=== PATIENT | female | born 1955 | race Caucasian/White ===

== ENCOUNTER → 2016-12-13 | Outpatient (CLI) | payer OTHER ==
[~2016-12-13] MED LIST: BENTYL10 MG PO; BYSTOLIC10 MG PO; CALCIUM 500 +1 EAC4 PO; DEXILANT60 MG PO; EFFEXOR XR150 MG PO; FLAGYL250 MG PO; KLONOPIN0.5 M1 PO; LEVOTHROID (S137 MCG PO; MAGNESIUM250 M1 PO; MIRAPEX1 MG PO; MOBIC15 MG PO; OSCAL500 MG PO; PREDNISONE10 MG PO; PRINIVIL OR ZES10 MG PO; PROTONIX40 MG PO; PROVENTIL OR V6.7 GM INH; ROCALTROL0.25 MCG PO; TYLENOL/COD#31 TAB PO; ULTRAM50 MG PO
== END | disposition disaster alternative care site (69) ==
LOC: GRAD 10:43
DX: R10.9 Unspecified abdominal pain (principal)
CPT/HCPCS: A9537

== ENCOUNTER → 2017-01-14 | Day surgery (SDC) | payer OTHER ==
[~2017-01-14] VITALS: Ht 162.6 cm; Wt 77.6 kg
--- NOTE | ~2017-01-14 | OR ---
PATIENT'S NAME: TONI BUTCHER [facility] AGE: 61 Y [address] ROOM: [place] [address] LOCATION: GEND ADMIT DATE: 01/14/2017 OR/Procedure Report DISCHARGE DATE: FAMILY PHYSICIAN: Jose Jose MD ATTENDING PHYSICIAN: SHAY HAN (GASTRO) SURGEON: Tho Han MD PRINTER HELPER: DATE OF PROCEDURE: 01/14/2017 PROCEDURE: Esophagogastroduodenoscopy. INDICATIONS: Abdominal pain. MEDICATIONS: Please see anesthesiology record for details. CONSENT: The risks/benefits/alternatives were discussed and the patient or her power of robotics technologist expressed understanding and agreed to proceed. Informed consent was obtained and placed in the chart. Time-out was completed prior to starting the procedure. PROCEDURE: Patient was placed in the left lateral decubitus position. One- lead EKG monitoring was used along with intermittent blood pressure monitoring and pulse oximetry. Bite block was placed in the patient's mouth. The above medications were given and titrated to response. Once adequate sedation was completed, the endoscope was passed through the patient's mouth into the posterior oropharynx. The endoscope was then passed into the esophagus, stomach and duodenal bulb. The duodenum was examined through the third portion. The endoscope was then withdrawn into the stomach. In the stomach, retroflexion was completed. The scope was then straightened and withdrawn from the patient. The patient tolerated the procedure well. There were no complications. SUMMARY OF FINDINGS: 1. Normal esophagus. 2. Normal stomach, status post biopsies to rule out H pylori. 3. Normal duodenum, status post biopsies, rule out celiac disease. ASSESSMENT AND PLAN: Abdominal pain: Nothing seen on EGD to explain patient's abdominal pain. There was no evidence of any ulcers or other lesions. We will await biopsies to rule out celiac disease and H pylori. I recommend following up in clinic to discuss a low FODMAP diet as I suspect changing to this will alleviate her bloating and relieve a lot of her abdominal pain as well. PATIENT'S NAME: TONI BUTCHER [facility] AGE: 61 Y [address] ROOM: [place] [address] LOCATION: GEND ADMIT DATE: 01/14/2017 OR/Procedure Report DISCHARGE DATE: FAMILY PHYSICIAN: Jose Jose MD ATTENDING PHYSICIAN: SHAY HAN (GASTRO) J SAGAR HAN MD JRT/modl /[id number] d: 01/14/17 1337 t: 01/14/17 1428, OPERATIVE SUMMARY
--- NOTE | ~2017-01-14 | OR ---
PATIENT'S NAME: TONI BUTCHER [facility] AGE: 61 Y [address] ROOM: [place] [id number] LOCATION: GEND ADMIT DATE: 01/14/2017 OR/Procedure Report DISCHARGE DATE: FAMILY PHYSICIAN: Jose Jose MD ATTENDING PHYSICIAN: SHAY HAN (GASTRO) SURGEON: Tho Han MD SOAPING MACHINE BACK TENDER: DATE OF PROCEDURE: 01/14/2017 PROCEDURE PERFORMED: Colonoscopy. INDICATIONS: Screening. MEDICATIONS: Please see Anesthesiology record for details. CONSENT: The risks/benefits/alternatives were discussed and the patient or her power of estate attorney expressed understanding and agreed to proceed. Informed consent was obtained and placed on the chart. Time-out was completed prior to starting the procedure. PROCEDURE IN DETAIL: Patient was placed in the left lateral decubitus position. One lead EKG monitoring was used along with intermittent blood pressure monitoring and pulse oximetry. The above medications were given and titrated to response. Once adequate sedation was completed, rectal exam was performed. The colonoscope was then passed through the rectum, into the sigmoid colon. The scope was then passed through the descending, transverse, and ascending colon. The scope was then passed into the cecum. The cecum was identified by the ileocecal valve and appendiceal orifice. The scope was then withdrawn. On withdrawal, the mucosa of the colon was examined. In the rectum, retroflexion was completed. The scope was then withdrawn from the patient. The patient tolerated the procedure well. There were no complications. SUMMARY OF FINDINGS: 1. Sigmoid colon polyp, 2 mm, sessile. This was seen, however, I was unable to remove the polyp as there was stool and debris in the area that could not be suctioned out. This covered the polyp and the polyp was not seen again. 2. Internal hemorrhoids, small, nonbleeding. 3. The terminal ileum was intubated and appeared normal. ASSESSMENT AND PLAN: Screening colonoscopy: The patient did have one polyp on exam today, this polyp was not removed given the stool in the area and the difficulty in finding this lesion second time. Therefore, I do recommend a repeat colonoscopy in 5 years. PATIENT'S NAME: TONI BUTCHER [facility] AGE: 61 Y [address] ROOM: [place] [id number] LOCATION: GEND ADMIT DATE: 01/14/2017 OR/Procedure Report DISCHARGE DATE: FAMILY PHYSICIAN: Jose Jose MD ATTENDING PHYSICIAN: SHAY HAN (GASTRO) J MD SREE FRAIRE/modl /[id number] d: 01/14/17 1339 t: 01/14/17 1431, OPERATIVE SUMMARY
== END | disposition disaster alternative care site (69) ==
LOC: GPOC 01-11 17:00 → GEND 07:02 → GPOC 17:00
PROC: 0DB68ZX Excision of Stomach, Via Natural or Artificial Opening Endoscopic, Diagnostic (ICD-10-PCS; principal; 2017-01-14)
PROC: 0DB88ZX Excision of Small Intestine, Via Natural or Artificial Opening Endoscopic, Diagnostic (ICD-10-PCS; 2017-01-14)
PROC: 0DJD8ZZ Inspection of Lower Intestinal Tract, Via Natural or Artificial Opening Endoscopic (ICD-10-PCS; 2017-01-14)
DX: Z12.11 Encounter for screening for malignant neoplasm of colon (principal); R10.9 Unspecified abdominal pain; I10 Essential (primary) hypertension; Z98.890 Other specified postprocedural states
CPT/HCPCS: J7030

== ENCOUNTER → 2017-03-11 | Outpatient (CLI) | payer OTHER ==
[2017-03-11 13:45] LABS: CALCIUM 8.3 mg/dL (8.5-10.5); MAGNESIUM 1.9 mg/dL (1.8-2.6); PHOSPHORUS 2.9 mg/dL (2.5-4.9)
== END | disposition disaster alternative care site (69) ==
LOC: GLAB 12:07
PROVIDERS: Otolaryngology
DX: E21.3 Hyperparathyroidism, unspecified (principal); E03.9 Hypothyroidism, unspecified

== ENCOUNTER → 2017-03-25 | Outpatient (CLI) | payer OTHER | LOC: GOPD 03-15 → GRAD 07:04 | DX: Z51.89 Encounter for other specified aftercare (principal); R19.7 Diarrhea, unspecified; Z85.3 Personal history of malignant neoplasm of breast; R14.0 Abdominal distension (gaseous); K44.9 Diaphragmatic hernia without obstruction or gangrene; K76.9 Liver disease, unspecified; M41.9 Scoliosis, unspecified; R91.1 Solitary pulmonary nodule; I77.819 Aortic ectasia, unspecified site | CPT/HCPCS: J2001; J7030 ==

== ENCOUNTER → 2017-04-02 | Outpatient (CLI) | payer OTHER ==
[2017-04-02 12:55] LABS: CALCIUM 8.8 mg/dL (8.5-10.5); MAGNESIUM 2.2 mg/dL (1.8-2.6)
== END | disposition disaster alternative care site (69) ==
LOC: GLAB 04-01 11:00
PROVIDERS: Otolaryngology
DX: E21.3 Hyperparathyroidism, unspecified (principal)

== ENCOUNTER → 2017-04-23 | Outpatient (CLI) | payer OTHER | END | disposition disaster alternative care site (69) | LOC: GLAB 04-19 14:38 | DX: E83.51 Hypocalcemia (principal) ==

== ENCOUNTER → 2017-05-13 | Outpatient (CLI) | payer OTHER | END | disposition disaster alternative care site (69) | LOC: GLAB 08:43 | DX: N25.81 Secondary hyperparathyroidism of renal origin (principal) ==

== ENCOUNTER → 2017-05-15 | Outpatient (CLI) | payer OTHER | END | disposition disaster alternative care site (69) | LOC: GLAB 07:40 | DX: N25.81 Secondary hyperparathyroidism of renal origin (principal) ==

== ENCOUNTER 2017-05-18 02:59 | Emergency (ER) | payer OTHER ==
--- NOTE | ~2017-05-18 | ER ---
PATIENT'S NAME: TONI BUTCHER [facility] AGE: 61 Y [address] ROOM: [place] [address] LOCATION: ED ADMIT DATE: 05/18/2017 ER/Outpatient Report DISCHARGE DATE: 05/18/2017 FAMILY PHYSICIAN: Jose Jose MD ATTENDING PHYSICIAN: Rashawn Glover Admission date and time documented in the medical record. I saw the patient at 0330 hours. CHIEF COMPLAINT: Right low back pain with right sciatica to the foot. Burning in nature, worse with movement. HISTORY OF PRESENT ILLNESS: The patient fell while walking in her sleep about 3 to 4 weeks ago. The patient had been following with orthopedic surgeons and was seen last yesterday and had a hip injection with lidocaine and steroid. Lidocaine took the pain away, but as soon as the lidocaine wore off the pain came back with a vengeance. Again, she has sciatica pain shooting down her leg, more anteriorly to the foot, again it hurts more with movement. She has had a bone scan and MRI. No recent coughs, colds, flus, fever, chills, or sweats. No recent fall. No headache, eyes, ears, nose, or throat pain. No lightheadedness, dizziness, syncope, or near syncope. No chest pain or shortness of breath. No abdominal pain, nausea, vomiting, or diarrhea. No change in her bowels or bladder. No extremity changes other than the right leg pain. No skin eruptions or rash. Does have a history of depression, anxiety, but no psychosis. Does have a history of hypothyroidism and hyperparathyroidism with parathyroid adenoma. No neuro changes. HOME MEDICATIONS: See attached medication list. ALLERGIES: NONE. SOCIAL HISTORY: Nonsmoker. Nondrinker. SIGNIFICANT PAST MEDICAL HISTORY: Depression, anxiety, hypothyroidism, hyperparathyroidism with parathyroid adenoma, palpitations, colon polyps, hypertension, and breast cancer. OPERATIONS: Colonoscopy, esophagogastroduodenoscopy, right inferior parathyroidectomy, bilateral mastectomy, hysterectomy, and . PATIENT'S NAME: TONI BUTCHER [facility] AGE: 61 Y [address] ROOM: [place] [address] LOCATION: ED ADMIT DATE: 05/18/2017 ER/Outpatient Report DISCHARGE DATE: 05/18/2017 FAMILY PHYSICIAN: Jose Jose MD ATTENDING PHYSICIAN: Rashawn Glover REVIEW OF SYSTEMS: All systems reviewed by me are negative with exception of those discussed in the history of the present illness. PHYSICAL EXAMINATION: VITAL SIGNS: Temperature 97.9, pulse 87, respirations 16, blood pressure 158/82, O2 saturation on room air was 98%. HEAD: Normocephalic. EYES, EARS, NOSE, and THROAT: Clear. NECK: Negative. SPINE: Negative. LUNGS: Clear. HEART: Regular. ABDOMEN: Soft. Nontender. Good bowel tones. No organomegaly or abnormal mass palpable. No CVA tenderness. PELVIS: Stable, nontender. EXTREMITIES: With any type of movement to the right leg, she has severe pain. Left leg moves without problems. Her upper extremities moves without problem. No peripheral edema, cyanosis, or deformity. Neurovascularly intact. SKIN: Clear. No skin eruptions or rash. LABORATORY DATA: White count was 18,300, 90 segs, 6 lymphs, 3 monos. Hemoglobin was 12.2, hematocrit 36.6, and platelet count was 257,000. Sedimentation rate was elevated at 31. CRP was 0.66. Lactate was 2.9. CMS was normal except an elevated glucose of 115, elevated BUN of 42, elevated creatinine 1.2, low GFR of 50. Procalcitonin was less than 0.05. I did order a MRI scan of the lumbosacral spine, results are pending at this time. IMPRESSION: Right low back pain with right leg pain to the foot, etiology uncertain. PLAN: I did transfer this patient's care over to Dr. Sinclair at shift change. I asked Dr. Sinclair to follow up with the patient's MRI study results of the lumbosacral spine, final diagnosis, and treatment plan. RASHAWN GLOVER MD SDS/modl PATIENT'S NAME: TONI BUTCHER [facility] AGE: 61 Y [address] ROOM: [place] [address] LOCATION: GMED ADMIT DATE: 05/18/2017 ER/Outpatient Report DISCHARGE DATE: 05/18/2017 FAMILY PHYSICIAN: Jose Jose MD ATTENDING PHYSICIAN: Rashawn Glovre /[id number] d: 05/20/17 2253 t: 05/21/17 1810, OUTPATIENT REPORT
[2017-05-18 03:57] LABS: BASOPHIL % 0.1 %; HEMATOCRIT 36.6 % (33.0-46.0); HEMOGLOBIN 12.2 g/dL (10.0-15.0); IMMATURE GRANULOCYTE # 0.1 K/uL (0.0-0.3); IMMATURE GRANULOCYTE % 0.6 %; LYMPHOCYTE # 1.2 K/uL (0.8-4.0); LYMPHOCYTE % 6.4 %; MCH 29.3 pg (27.0-34.0); MCHC 33.3 gm/dL (32.0-36.5); MCV 87.8 fl (83.0-98.0); MONOCYTE # 0.6 K/uL (0.0-1.0); MONOCYTE % 3.1 %; MPV 9.7 fl (9.4-12.4); NEUTROPHIL # (ANC) 16.5 K/uL (1.8-7.8); NEUTROPHIL % 89.8 %; NRBC % 0 /100WBC (0-0.00); PLATELET COUNT 257 K/uL (150-450); RBC 4.17 M/uL (3.50-5.50); RDW-CV 12.6 % (11.9-14.6)
[2017-05-18 03:58] LABS: WBC 18.3 K/uL (4.0-11.0)
[2017-05-18 04:16] LABS: ALBUMIN 3.1 gm/dL (3.5-5.0); ANION GAP 11.2 (10.0-19.0); CALCIUM 8.9 mg/dL (8.5-10.5); CREATININE 1.2 mg/dL (0.5-1.1); POTASSIUM 4.2 mMol/L (3.7-5.1); TOTAL BILIRUBIN 0.2 mg/dL (0.0-1.5)
== END 2017-05-18 07:43 | disposition disaster alternative care site (69) ==
LOC: GMED 02:59
PROVIDERS: Emergency Medicine
DX: M54.5 Low back pain (principal); M79.671 Pain in right foot; E03.9 Hypothyroidism, unspecified; F41.9 Anxiety disorder, unspecified; I10 Essential (primary) hypertension; F32.9 Major depressive disorder, single episode, unspecified; Z90.13 Acquired absence of bilateral breasts and nipples; Z90.710 Acquired absence of both cervix and uterus; Z98.890 Other specified postprocedural states; Z79.899 Other long term (current) drug therapy
CPT/HCPCS: J1170; J1885; J2930; J7030